=== PATIENT | female | born 1985 | race Caucasian/White ===

== ENCOUNTER 2017-08-23 08:55 | Emergency (ER) | payer SELFPAY ==
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
[2017-08-23 09:17] VITALS: BP 149/76
== END 2017-08-23 09:34 | disposition home or self-care (01) ==
LOC: ED 08:55
DX: B02.9 Zoster without complications (principal)
CPT/HCPCS: 99282

== ENCOUNTER 2018-07-15 09:45 | Emergency (ER) | payer SELFPAY ==
--- NOTE | 2018-07-15 10:23 | ED Physician Documentation ---
General Adult - HISTORIAN Historian: patient - HPI Stated Complaint: severe back/R flank pain Chief Complaint: General Adult Onset: days ago Timing: still present Severity: severe Further Comments: yes (Pt is a 32 yo female with severe back pain with radiation to the R flank. Pt says that the pain has been going on for 2 weeks. She is tearful and appears to be in much distress with the pain. 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 Pt has not had n/v. No c/o constipation/diarrhea.) - ROS CONST: no problems EYES/ENT: none CVS/RESP: none GI/: none MS/SKIN/LYMPH: back pain - PAST HX Past History: other (uterine tumor/hysterectomy, ) Allergies/Adverse Reactions: Allergies Allergy/AdvReac Type Severity Reaction Status Date / Time amoxicillin trihydrate Allergy Verified 08/23/17 09:09 [From Amoxil] bee venom protein (honey bee) Allergy Verified 07/15/18 10:18 Penicillins Allergy Verified 08/23/17 09:09 Home Medications: Ambulatory Orders Medication Instructions Recorded NK 08/23/17 - SOCIAL HX Smoking History: cigarettes - FAMILY HX Family History: No - VITAL SIGNS Vital Signs: Vital Signs Temp Pulse Resp BP Pulse Ox 97.2 F L 117 H 28 H 168/114 98 07/15/18 09:45 07/15/18 09:45 07/15/18 09:45 07/15/18 09:45 07/15/18 09:45 - REVIEWED ASSESSMENTS Nursing Assessment Reviewed: Yes Vitals Reviewed: Yes Progress - Progress Progress: Dilaudid 1 mg IV Zofran 4 mg IV Dilaudid 0.5 mg IV Toradol 30 mg IV Diazepam 5 mg IV EXAMINATION: CT ABD PELVIS W/ CON HISTORY: CT A/P W/ CONTRAST, SEVERE LOW BACK PAIN AND RT FLANK PAIN. PT STATES HYSTERECTOMY WITH LARGE MASS REMOVE TECHNIQUE: CT of the abdomen and pelvis was performed with contrast according to standard protocol. COMPARISON: None FINDINGS: The aorta is normal in caliber. The visible lung bases are clear. The heart size is normal. The liver enhances homogeneously. The gallbladder appears normal. The intrahepatic and extrahepatic bile ducts are nondilated. The spleen enhances homogeneously. The pancreas and adrenal glands are normal. The kidneys enhance symmetrically. There is no evidence of renal calculus on the left or hydronephrosis. There is a 3 mm nonobstructive calculus in the right kidney. The distal esophagus and stomach appear normal. The small bowel and colon are normal in caliber without evidence of wall thickening or obstruction. The appendix appears normal at the midline. No free air or free fluid is identified in the abdomen. There is no abdominal lymphadenopathy. The urinary bladder is distended with fluid and appears normal. The uterus is absent. Rounded areas of soft tissue in both adnexa likely represents the ovaries. No free fluid is seen in the pelvis. Bone windows demonstrate no suspicious lytic or blastic lesions. The visible osseous structures are intact. There is mild degenerative change in the lumbar spine. IMPRESSION: 1. No acute process identified in the abdomen or pelvis. 2. A 3 mm nonobstructive right renal calculus. Electronically signed on Jul 15, 2018 12:44:37 PM CDT by: Edinson Marcos Pt appeared to be in much less pain and is ambulating in room, though she continues to c/o significant pain. CT w/o significant finding. Rx Arnold (5/325) 1-2 po q 4-6 h prn # 15 f/u pcp General Adult Physical Exam - PHYSICAL EXAM GENERAL APPEARANCE: moderate distress EENT: pharynx normal NECK: normal inspection, supple RESPIRATORY: no resp distress, chest non-tender, breath sounds normal CVS: reg rate & rhythm, heart sounds normal ABDOMEN: soft, no organomegaly, normal bowel sounds BACK: normal inspection, other (lumbar tenderness, R side & ? central) SKIN: warm/dry, normal color EXTREMITIES: non-tender, normal range of motion, no evidence of injury NEURO: oriented X3, motor nml, sensation nml Discharge Clincal Impression: back pain, flank pain, possible musculoskeletal pain Referrals: Primary Doctor,No [Primary Care Provider] - Condition: Stable Decision to Admit: NO Decision Time: 16:01
[2018-07-15] MEDS: ONDANSETRON HCL/PF 4 MG/ 2ML VIAL IVP ONE (10:44)
[2018-07-15] MEDS: HYDROmorphone HCL/PF 1 MG/ML VIAL IVP ONE ×2 (10:45→11:25)
[2018-07-15 10:56] LABS: MEAN CORPUSCULAR HEMOGLOBIN 28.8 pg (28.0-34.0)
[2018-07-15 10:57] LABS: BASOPHILS % 1.1 (0.0-1.5); EOSINOPHILS % 1.5 % (0.0-6.8); MONOCYTES % 3.2 % (0.0-11.0); NEUTROPHILS # 11.2 # k/uL (1.4-7.7)
[2018-07-15 11:20] LABS: eGFR (Non-African) > 60
[2018-07-15] MEDS: KETOROLAC TROMETHAMINE 30 MG/1ML VIAL IV ONE (13:40)
[2018-07-15 13:54] LABS: APPEARANCE,URINE CLEAR (CLEAR); COLOR,URINE YELLOW (YELLOW); OCCULT BLOOD,URINE NEGATIVE (NEGATIVE); PH URINE 5.5 (5.0 - 8.0); UROBILINOGEN URINE 0.2 Eu (0.2-1.0)
[2018-07-15] MEDS: DIAZEPAM 5 MG/ML IV ONE (14:55)
[2018-07-15 16:49] VITALS: BP 123/84
--- NOTE | 2018-07-16 06:11 | Diagnostic Imaging Report ---
DEREK HARDWICK [facility] [address] [facility] [address] [place], [place]. [address] Report Submission Date: Jul 15, 2018 2:15:50 PM CDT Patient Study Name: CHARLOTTE HEWITT Date: Jul 15, 2018 1:15:13 PM CDT Modality Type: DX Gender: F Description: CHEST 2VIEW : 87 Institution: [facility] Physician: DEREK HARDWICK Examination: PA and lateral chest. History: Evaluate lung bee. COUGH, ELEVATED WHITE COUNT Comparison exam: None available. Findings: PA and lateral views of the chest demonstrates a normal cardiac and mediastinal silhouette. No focal infiltrate. No blunting of the costophrenic margins. Thoracic curvature to the right. Impression: No acute pulmonary process. Electronically signed on Jul 15, 2018 2:15:50 PM CDT by: Jay WILHELM
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
== END 2018-07-15 16:30 ==
LOC: ED 09:45
DX: M54.5 Low back pain (principal); R10.31 Right lower quadrant pain
CPT/HCPCS: 36415; 71046; 74177; 80053; 81002; 83690; 85025; 96374; 96375; 96376; 99283; 99284; J1170; J1885; J2405; Q9967

== ENCOUNTER 2018-07-16 08:38 | Emergency (ER) | payer SELFPAY ==
[2018-07-16 09:02] VITALS: BP 131/46
[2018-07-16] MEDS: methylPREDNISolone SOD SUCC 125 MG/2 ML VIAL IM ONE (09:22)
[2018-07-16] MEDS: DIAZEPAM 5 MG/ML IM ONE (09:22)
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
== END 2018-07-16 10:21 | disposition home or self-care (01) ==
LOC: ED 08:38
DX: Z04.1 Encounter for examination and observation following transport accident (principal); M51.26 Other intervertebral disc displacement, lumbar region; V47.1XXA Car passenger injured in collision with fixed or stationary object in nontraffic accident, initial encounter; Y93.89 Activity, other specified; Y92.481 Parking lot as the place of occurrence of the external cause
CPT/HCPCS: 70450; 72131; 96372; 99284; 99285; J2930

== ENCOUNTER 2018-12-22 08:54 | Emergency (ER) | payer SELFPAY ==
[2018-12-22 10:18] VITALS: BP 124/57
--- NOTE | 2018-12-22 11:09 | Diagnostic Imaging Report ---
DEREK HARDWICK [facility] [address] [facility] [address] [address] Report Submission Date: Dec 22, 2018 10:34:28 AM CDT Patient Study Name: CHARLOTTE HEWITT Date: Dec 22, 2018 10:09:02 AM CDT Modality Type: DX Gender: F Description: KNEE 3 VIEWS : 87 Institution: [facility] Physician: DEREK HARDWICK Exam: Left knee. History: Fall. AP, lateral and sunrise view of the left knee are submitted. No signs of acute fracture or dislocation is identified. Mild anterior joint effusion is noted. Mild soft tissue swelling anterior is noted. Impression: No acute fracture. Small anterior joint effusion and soft tissue swelling. Electronically signed on Dec 22, 2018 10:34:28 AM CDT by: Vasu WILHELM
--- NOTE | 2018-12-22 11:16 | ED Physician Documentation ---
General Adult - HISTORIAN Historian: patient - HPI Stated Complaint: L Knee pain Chief Complaint: General Adult Onset: hours Timing: still present Severity: moderate Further Comments: yes (Pt is a 33 yo female with L knee pain. Pt is obese and fell last night wrenching her L leg. Pt has pain/soreness in muscles of calf and thigh) - ROS CONST: no problems EYES/ENT: none CVS/RESP: none GI/: none MS/SKIN/LYMPH: other (L knee/leg pain) - PAST HX Past History: other (hysterectomy) Allergies/Adverse Reactions: Allergies Allergy/AdvReac Type Severity Reaction Status Date / Time amoxicillin trihydrate Allergy Verified 12/22/18 10:15 [From Amoxil] bee venom protein (honey bee) Allergy Verified 12/22/18 10:15 Penicillins Allergy Verified 12/22/18 10:15 Home Medications: Ambulatory Orders Medication Instructions Recorded Gabapentin 100 mg PO TID #90 capsule 07/16/18 Tramadol HCl [Ultram] 1 tab PO BID 12/22/18 - SOCIAL HX Smoking History: non-smoker - FAMILY HX Family History: No - VITAL SIGNS Vital Signs: Vital Signs Temp Pulse Resp BP Pulse Ox 83 15 124/57 94 12/22/18 09:00 12/22/18 09:00 12/22/18 09:00 12/22/18 09:00 - REVIEWED ASSESSMENTS Nursing Assessment Reviewed: Yes Vitals Reviewed: Yes Progress - Progress Progress: X-ray L knee: No acute fracture. Small anterior joint effusion and soft tissue swelling. Toradol 60 mg IM knee immobilizer crutches f/u ortho, phys tx, consult submitted. NSAIDS ED Results Lab/Radiology - Orders Orders: ED Orders Category Date Time Status KNEE 3 VIEWS [RAD] Stat Exams 12/22/18 Completed General Adult Physical Exam - PHYSICAL EXAM GENERAL APPEARANCE: moderate distress NECK: normal inspection, supple RESPIRATORY: no resp distress, chest non-tender, breath sounds normal CVS: reg rate & rhythm, heart sounds normal ABDOMEN: soft, no organomegaly, normal bowel sounds BACK: normal inspection, no CVA tenderness SKIN: warm/dry, normal color EXTREMITIES: other (tenderness L posterior thigh/calf. No ligamentous instability) NEURO: oriented X3, motor nml, sensation nml Discharge Clincal Impression: L knee injury Referrals: Primary Doctor,No [Primary Care Provider] - Condition: Stable Disposition: 01 HOME, SELF-CARE Decision to Admit: NO Decision Time: 11:33
[2018-12-22] MEDS ORDERED: KETOROLAC TROMETHAMINE 60 MG/2 ML VIAL IM ONE (11:34)
== END 2018-12-22 12:00 | disposition home or self-care (01) ==
LOC: ED 08:54
DX: S89.92XA Unspecified injury of left lower leg, initial encounter (principal); W19.XXXA Unspecified fall, initial encounter
CPT/HCPCS: 73562; 96372; 99282; 99284

== ENCOUNTER 2019-03-07 07:27 | Emergency (ER) | payer SELFPAY ==
--- NOTE | 2019-03-07 07:30 | ED Physician Documentation ---
Fall - HISTORIAN Historian: patient - HPI Stated Complaint: left knee and low back pain Chief Complaint: Lower Extremity Injury Onset: yesterday Where: home Context: other (due to back pain ) Associated Symptoms:: no loss of consciousness Location of Pain/Injury: lower extremity (left knee ) Injury to Right Extremity: none Injury to Left Extremity: knee Further Comments: yes (She states on and off her "back goes out of place" this happened yesterday and thus she did fall causing knee pain which has also happened in the past. She did take OTC meds yesterday with no relief and nothing today for a pain in knee 09/27 and back 11/27. No loss of control of her bowel or bladder) - ROS CONST: no problems NEURO: denies: dizziness MS/SKIN/LYMPH: back pain. denies: weakness, ankle swelling, leg swelling EYES/ENT: none CVS/RESP: none GI/: denies: problems urinating - PAST HX Past History: other (CHF ) Allergies/Adverse Reactions: Allergies Allergy/AdvReac Type Severity Reaction Status Date / Time amoxicillin trihydrate Allergy Verified 03/07/19 07:45 [From Amoxil] bee venom protein (honey bee) Allergy Verified 03/07/19 07:45 Penicillins Allergy Verified 03/07/19 07:45 Home Medications: Ambulatory Orders Medication Instructions Recorded Tramadol HCl [Ultram] 1 tab PO BID 12/22/18 Baclofen 10 mg PO TID 03/07/19 Furosemide [Lasix] 40 mg PO DAILY 03/07/19 Gabapentin 600 mg PO TID 03/07/19 Potassium Chloride [Klor-Con M20] 20 meq PO DAILY 03/07/19 - SOCIAL HX Smoking History: cigarettes Alcohol Use: none Drug Use: none - FAMILY HX Family History: none - VITAL SIGNS Vital Signs: Vital Signs Temp Pulse Resp BP Pulse Ox 124/57 12/22/18 12:00 - REVIEWED ASSESSMENTS Nursing Assessment Reviewed: Yes Vitals Reviewed: Yes Fall Physical Exam - Physical Exam General Appearance: no acute distress, alert Head: non-tender Neck: non-tender Eye: TONE ENT: nml external inspection Resp/CVS: chest non-tender, breath sounds nml, no resp. distress, heart sounds nml Abdomen: soft Neuro: oriented x3, CN's nml as tested, sensation nml, motor nml Skin: color nml, other (small skin abrasion on left knee frontal ) Back: normal inspection, no CVA tenderness, no vertebral tenderness Extremities: atraumatic, nml ROM, nml color/temp. No: painful weight bearing, unable to bear weight Joint: joints nml, nml ROM, Nml gait/weight bearing - [place] Coma Score Eyes Open: Spontaneous Speech: Oriented Motor: Obeys Commands Discharge Clincal Impression: Knee pain, left Qualifiers: Chronicity: acute Qualified Code(s): M25.562 - Pain in left knee Referrals: Primary Doctor,No [Primary Care Provider] - 2 Days Comments: 1. Continue OTC meds /prescription meds at home as directed as needed 2. Ice/elevate 3. Follow up with PCP in 2-4 days 4. Return to ER for any increased concerns Condition: Stable Disposition: 01 HOME, SELF-CARE Decision to Admit: NO Date of Decison to Admit: 03/07/19 Decision Time: 08:23
[2019-03-07] MEDS ORDERED: KETOROLAC TROMETHAMINE 60 MG/2 ML VIAL IM ONE (08:18)
--- NOTE | 2019-03-07 08:18 | Diagnostic Imaging Report ---
PATIENT MR#: [id number] PATIENT PATIENT NAME: CHARLOTTE HEWITT DATE OF : 1985 REFERRING PHYSICIAN: Harmony Padgett EXAM DATE: 03/07/2019 ACCESSION NUMBER: [id number] EXAM DESCRIPTION: KNEE 3 VIEWS Examination: Plain film left knee History: INCREASED PAIN AFTER FALL YESTERDAY Findings: 3 views of the left knee demonstrates mild degenerative spurring. Mild medial joint space n arrowing. No fracture. No dislocation. No joint effusion. No soft tissue irregularity. Impression: Mild degenerative changes. No acute appearing osseous abnormality Read by: Dr. Jay Fishman Transcribed by: Transcribed Date: Electronically signed by: Dr. Jay Fishman Date signed: 03/07/2019 8:16:28 AM
--- NOTE | 2019-03-07 08:18 | Diagnostic Imaging Report ---
PATIENT MR#: [id number] PATIENT PATIENT NAME: CHARLOTTE HEWITT DATE OF : 1985 REFERRING PHYSICIAN: Harmony Padgett EXAM DATE: 03/07/2019 ACCESSION NUMBER: [id number] EXAM DESCRIPTION: L SPINE 2 OR 3 VIEWS Examination: Plain film lumbar spine History: CHRONIC LOW BACK PAIN Comparison exam: CT dated 16 July 2018 Findings: 3 views of the lumbar spine demonstrate normal height. No anterior compression. Scattered minimal spurring. Minimal L5-S1 retrolisthesis. No soft tissue abnormalities. Impression: Degenerative changes. No acute osseous process. Read by: Dr. Jay Fishman Transcribed by: Transcribed Date: Electronically signed by: Dr. Jay Fishman Date signed: 03/07/2019 8:16:28 AM
[2019-03-07 08:32] VITALS: BP 146/88
== END 2019-03-07 08:29 | disposition home or self-care (01) ==
LOC: ED 07:27
DX: M25.562 Pain in left knee (principal); M54.5 Low back pain
CPT/HCPCS: 72100; 73562; 96372; 99284; J1885; 99282

== ENCOUNTER 2019-04-05 13:36 | Emergency (ER) | payer SELFPAY ==
--- NOTE | 2019-04-05 14:00 | ED Physician Documentation ---
General Adult - HISTORIAN Historian: patient - HPI Stated Complaint: chest pain Chief Complaint: General Adult Onset: hours Timing: still present Severity: moderate Further Comments: yes (Pt is a 33 yo obese female with c/o chest pain. Pain is brief, momentary, stabbing pain in chest. Pt is a heavy smoker, 2ppd. Pt has been wheezy. Pt has hx chronic back pain, and is on steroid dose pack for back pain. Pt notes bluish discoloration to skin on arms and back that varies in intensity and has been occurring since yesterday.) - ROS CONST: no problems EYES/ENT: none CVS/RESP: chest pain, shortness of breath, other (wheezing) GI/: none MS/SKIN/LYMPH: other (patches of "bluish discoloration.") NEURO/PSYCH: tingling (L arm, intermittent) - PAST HX Past History: other (chronic pain, bulging disk in back.) Surgeries/Procedures: hysterectomy, other (tonsillectomy.) Allergies/Adverse Reactions: Allergies Allergy/AdvReac Type Severity Reaction Status Date / Time amoxicillin trihydrate Allergy Verified 04/05/19 16:42 [From Amoxil] bee venom protein (honey bee) Allergy Verified 04/05/19 16:42 Penicillins Allergy Verified 04/05/19 16:42 Home Medications: Ambulatory Orders Medication Instructions Recorded Tramadol HCl [Ultram] 1 tab PO BID 12/22/18 Baclofen 10 mg PO TID 03/07/19 Furosemide [Lasix] 40 mg PO DAILY 03/07/19 Gabapentin 600 mg PO TID 03/07/19 Potassium Chloride [Klor-Con M20] 20 meq PO DAILY 03/07/19 - SOCIAL HX Smoking History: greater than 1 pack/day - FAMILY HX Family History: No - VITAL SIGNS Vital Signs: Vital Signs Temp Pulse Resp BP Pulse Ox 146/88 03/07/19 08:29 - REVIEWED ASSESSMENTS Nursing Assessment Reviewed: Yes Vitals Reviewed: Yes Progress - Progress Progress: ABG obtained for eval of faint blue skin discoloration on upper arms and back. Pt is a heavy smoker and CO elevation is accounted for by heavy smoking. MetHB wnl d-dimer wnl faint blue skin patches not well explained Albuterol HFN in ER somewhat helpful. wbc elevated in pt taking steroids. Pt may f/u dermatology if faint blue patches persist d/c instructions Rx Albuterol (90 mcg/spray) MDI. Take 2 puffs every 4 to 6 hours as needed for wheezing. Rx Flovent (110 mcg/spray). Take 2 puffs every 12 hours for 3 days; then 1 puff every 12 hours for 3 days; then one puff daily for 3 days. Rinse mouth with w ater after using Flovent. - EKG/XRAY/CT EKG: NSR (HR=89; normal EKG.) XRAY: chest (No acute pulmonary process.) General Adult Physical Exam - PHYSICAL EXAM GENERAL APPEARANCE: mild distress EENT: pharynx normal NECK: normal inspection, supple RESPIRATORY: other (coarse breath sounds/wheezes) CVS: reg rate & rhythm, heart sounds normal ABDOMEN: soft, no organomegaly, normal bowel sounds BACK: normal inspection, no CVA tenderness SKIN: other (faint bluish discoloration in large patches on back and upper arms) EXTREMITIES: non-tender, normal range of motion NEURO: oriented X3, motor nml, sensation nml Discharge Clincal Impression: Non-cardiac chest pain, wheezing Referrals: Primary Doctor,No [Primary Care Provider] - Condition: Stable Disposition: 01 HOME, SELF-CARE Decision to Admit: NO Decision Time: 16:19
[2019-04-05 14:29] LABS: eGFR (Non-African) > 60
[2019-04-05] MEDS ORDERED: ALBUTEROL SULFATE 2.5 MG/3 ML AMPUL.NEB NEB ONE (14:31)
[2019-04-05 14:38] LABS: NEUTROPHILS # 13.3 # k/uL (1.4-7.7); SEGMENTED NEUTROPHILS % 66 % (39-79)
--- NOTE | 2019-04-05 15:05 | Diagnostic Imaging Report ---
PATIENT MR#: [id number] PATIENT PATIENT NAME: CHARLOTTE HEWITT DATE OF : 1985 REFERRING PHYSICIAN: Steven Berumen EXAM DATE: 04/05/2019 ACCESSION NUMBER: [id number] EXAM DESCRIPTION: CHEST 2VIEW Examination: PA and lateral chest. History: PT STATES CHEST TIGHTNESS, BLUE TINTED SKIN, AND CHEST PAIN Comparison exam: None provided. Findings: PA and lateral views of the chest demonstrates a normal cardiac and mediastinal silhouette. Elevated right hemidiaphragm. No focal infiltrate. No blunting of the costophrenic margins. Osseous structures are appropriate for age. Impression: No acute pulmonary process. Read by: Dr. Jay Fishman Transcribed by: Transcribed Date: Electronically signed by: Dr. Jay Fishman Date signed: 04/05/2019 3:03:50 PM
[2019-04-05 16:42] VITALS: BP 142/66
== END 2019-04-05 16:30 | disposition home or self-care (01) ==
LOC: ED 13:36
DX: R07.9 Chest pain, unspecified (principal); R06.2 Wheezing
CPT/HCPCS: 36600; 71046; 80053; 82803; 83880; 84484; 85025; 85379; 85610; 85730; 93005; 94640; 94760; 99283; 99284; S1016